=== PATIENT | female | born 1945 | race Caucasian/White ===

== ENCOUNTER → 2016-12-25 | Outpatient (CLI) | payer MEDICARE, OTHER ==
[~2016-12-25] MED LIST: ALLO300T PO; ASPI-515 PO; CELE100C PO; DILT360C22 PO; FLUT1DIS3 INH; LISI40TA PO; LORA0.5T PO; METF500T4 PO; MONT10TA9 PO; OMEP-110 PO; SERT50TA5 PO; SIMV10TA3 PO; TRIA1CAP3 PO
[2016-12-25 15:01] LABS: BLOOD UREA NITROGEN 20 mg/dL (7-18)
== END | disposition home or self-care (01) ==
LOC: LAB 14:38
PROVIDERS: ATTEND Physician Assistant
DX: Z13.220 Encounter for screening for lipoid disorders (principal); Z12.4 Encounter for screening for malignant neoplasm of cervix; Z12.39 Encounter for other screening for malignant neoplasm of breast; I08.0 Rheumatic disorders of both mitral and aortic valves; K21.9 Gastro-esophageal reflux disease without esophagitis; E78.5 Hyperlipidemia, unspecified; I10 Essential (primary) hypertension; R73.01 Impaired fasting glucose; F32.89 Other specified depressive episodes; F41.9 Anxiety disorder, unspecified; J44.9 Chronic obstructive pulmonary disease, unspecified; R60.9 Edema, unspecified; M25.511 Pain in right shoulder; R71.8 Other abnormality of red blood cells; R79.9 Abnormal finding of blood chemistry, unspecified; J15.8 Pneumonia due to other specified bacteria; E83.51 Hypocalcemia; B37.81 Candidal esophagitis
CPT/HCPCS: 36415; 80048

== ENCOUNTER → 2017-04-02 | Outpatient (CLI) | payer MEDICARE, OTHER ==
[2017-04-02 08:37] LABS: ASPARTATE AMINO TRANSFERASE 19 U/L (15-37); BLOOD UREA NITROGEN 12 mg/dL (7-18)
== END | disposition home or self-care (01) ==
LOC: LAB 08:12
PROVIDERS: ATTEND Physician Assistant
DX: Z13.220 Encounter for screening for lipoid disorders (principal); Z12.11 Encounter for screening for malignant neoplasm of colon; Z12.39 Encounter for other screening for malignant neoplasm of breast; Z12.4 Encounter for screening for malignant neoplasm of cervix; E78.5 Hyperlipidemia, unspecified; I10 Essential (primary) hypertension; J44.9 Chronic obstructive pulmonary disease, unspecified; I35.9 Nonrheumatic aortic valve disorder, unspecified; I34.9 Nonrheumatic mitral valve disorder, unspecified; K21.9 Gastro-esophageal reflux disease without esophagitis; B37.81 Candidal esophagitis; F32.89 Other specified depressive episodes; F41.9 Anxiety disorder, unspecified; R73.01 Impaired fasting glucose; E83.51 Hypocalcemia; R60.9 Edema, unspecified; M25.511 Pain in right shoulder; M25.561 Pain in right knee; M54.5 Low back pain; R71.8 Other abnormality of red blood cells; R89.9 Unspecified abnormal finding in specimens from other organs, systems and tissues; H35.30 Unspecified macular degeneration
CPT/HCPCS: 36415; 80053; 80061

== ENCOUNTER 2017-07-18 10:44 | Emergency (ER) | payer MEDICARE, OTHER ==
[~2017-07-18] VITALS: Ht 172.7 cm; Wt 79.6 kg
[2017-07-18 10:47] VITALS: BP 125/75
== END 2017-07-18 12:36 | disposition home or self-care (01) ==
LOC: ED 11:06
DX: S20.212A Contusion of left front wall of thorax, initial encounter (principal); S20.211A Contusion of right front wall of thorax, initial encounter; R51 Headache; E11.9 Type 2 diabetes mellitus without complications; I10 Essential (primary) hypertension; V89.2XXA Person injured in unspecified motor-vehicle accident, traffic, initial encounter; Y93.89 Activity, other specified; Y92.89 Other specified places as the place of occurrence of the external cause; Y99.9 Unspecified external cause status
CPT/HCPCS: 71020; 93005; 99284

== ENCOUNTER → 2017-08-26 | Outpatient (CLI) | payer MEDICARE, OTHER | END | disposition home or self-care (01) | LOC: CFH 10:04 | PROVIDERS: ATTEND Physician Assistant | DX: Z13.820 Encounter for screening for osteoporosis (principal); M85.80 Other specified disorders of bone density and structure, unspecified site; I10 Essential (primary) hypertension; K21.9 Gastro-esophageal reflux disease without esophagitis; E78.5 Hyperlipidemia, unspecified; Z78.0 Asymptomatic menopausal state | CPT/HCPCS: 77080 ==

== ENCOUNTER → 2017-10-08 | Outpatient (CLI) | payer MEDICARE, OTHER ==
[2017-10-08 08:37] LABS: BASOPHILS # (AUTO) 0.06 x10^3/uL (0-0.1); BASOPHILS % (AUTO) 1 % (0-1); EOSINOPHILS # (AUTO) 0.16 x10^3/uL (0-0.4); EOSINOPHILS % (AUTO) 3 % (1-7); LYMPHOCYTES # (AUTO) 2.19 x10^3/uL (1-3.4); LYMPHOCYTES % (AUTO) 34 % (22-44); MD NO; MEAN CORPUSCULAR HEMOGLOBIN 33.6 pg (27.0-34.8); MEAN CORPUSCULAR VOLUME 98.9 fL (80-100); MEAN PLATELET VOLUME 7.9 fL (7.4-10.4); MONOCYTES # (AUTO) 0.68 x10^3/uL (0.2-0.8); MONOCYTES % (AUTO) 11 % (2-9); NEUTROPHILS # (AUTO) 3.43 x10^3/uL (1.8-6.8); NEUTROPHILS % (AUTO) 53 % (42-75); PLATELET COUNT 247 x10^3/uL (130-400); RED CELL DISTRIBUTION WIDTH 14.1 % (9.6-15.2)
[2017-10-08 08:50] LABS: ALBUMIN 3.9 g/dL (3.4-5.0); ANION GAP 7 mmol/L (5-15); CALCIUM 9.2 mg/dL (8.5-10.1); CHLORIDE 107 mmol/L (98-107); CHOLESTEROL, TOTAL 163 mg/dL (140-239); TRIGLYCERIDES 86 mg/dL (50-200); VLDL CHOLESTEROL 17 mg/dL (0-25)
[2017-10-08 09:16] LABS: % IRON SATURATION 17 % (20-55); ALANINE AMINOTRANSFERASE 25 U/L (12-78); ALKALINE PHOSPHATASE 84 U/L (45-117); BILIRUBIN,TOTAL 0.5 mg/dL (0.2-1.0); CHOL/HDL RATIO 2.7; CREATININE 0.69 mg/dL (0.55-1.02); FOLATE LEVEL 15.4 ng/mL (3.1-17.5); HDL CHOL % 37 % (28-40); HDL CHOLESTEROL (DIRECT) 60 mg/dL (40-60); IRON LEVEL 58 mcg/dL (50-170); LDL CHOLESTEROL,CALCULATED 86 mg/dL (54-169); LDL/HDL RATIO 1.4 (0.5-3.0); TOTAL IRON BINDING CAPACITY 333 mcg/dL (250-450); TOTAL PROTEIN 7.4 g/dL (6.4-8.2); TRANSFERRIN 285 mg/dL (200-360)
== END | disposition home or self-care (01) ==
LOC: LAB 08:25
PROVIDERS: ATTEND Physician Assistant
DX: Z13.220 Encounter for screening for lipoid disorders (principal); Z12.11 Encounter for screening for malignant neoplasm of colon; Z12.31 Encounter for screening mammogram for malignant neoplasm of breast; Z12.4 Encounter for screening for malignant neoplasm of cervix; K21.9 Gastro-esophageal reflux disease without esophagitis; E78.5 Hyperlipidemia, unspecified; I10 Essential (primary) hypertension; R73.01 Impaired fasting glucose; F32.89 Other specified depressive episodes; F41.9 Anxiety disorder, unspecified; J44.9 Chronic obstructive pulmonary disease, unspecified; R60.9 Edema, unspecified; M25.511 Pain in right shoulder; I35.9 Nonrheumatic aortic valve disorder, unspecified; I34.9 Nonrheumatic mitral valve disorder, unspecified; R71.8 Other abnormality of red blood cells; M25.561 Pain in right knee; M54.5 Low back pain; R79.9 Abnormal finding of blood chemistry, unspecified; E83.51 Hypocalcemia; B37.81 Candidal esophagitis; H35.30 Unspecified macular degeneration; Z78.0 Asymptomatic menopausal state; R53.83 Other fatigue
CPT/HCPCS: 36415; 80053; 80061; 82607; 82728; 82746; 83540; 83550; 84443; 84466; 85025

== ENCOUNTER → 2018-01-29 | Outpatient (CLI) | payer MEDICARE, OTHER ==
[2018-01-29 08:04] LABS: BASOPHILS # (AUTO) 0.07 x10^3/uL (0-0.1); BASOPHILS % (AUTO) 1 % (0-1); EOSINOPHILS # (AUTO) 0.27 x10^3/uL (0-0.4); EOSINOPHILS % (AUTO) 4 % (1-7); LYMPHOCYTES # (AUTO) 1.72 x10^3/uL (1-3.4); LYMPHOCYTES % (AUTO) 27 % (22-44); MD NO; MEAN CORPUSCULAR HEMOGLOBIN 33.2 pg (27.0-34.8); MEAN CORPUSCULAR HGB CONC 33.6 g/dL (32.4-35.8); MEAN CORPUSCULAR VOLUME 98.7 fL (80-100); MEAN PLATELET VOLUME 7.9 fL (7.4-10.4); MONOCYTES # (AUTO) 0.72 x10^3/uL (0.2-0.8); MONOCYTES % (AUTO) 12 % (2-9); NEUTROPHILS % (AUTO) 56 % (42-75); PLATELET COUNT 221 x10^3/uL (130-400); RED BLOOD COUNT 4.48 x10^6/uL (3.82-5.3); RED CELL DISTRIBUTION WIDTH 14.9 % (9.6-15.2)
[2018-01-29 08:22] LABS: ALBUMIN 3.6 g/dL (3.4-5.0); BILIRUBIN, DIRECT 0.2 mg/dL (0.1-0.2); BILIRUBIN,INDIRECT 0.4 mg/dL (0.0-2.0); BILIRUBIN,TOTAL 0.6 mg/dL (0.2-1.0); CHOL/HDL RATIO 1.9; LDL/HDL RATIO 0.7 (0.5-3.0); TOTAL PROTEIN 6.7 g/dL (6.4-8.2)
== END | disposition home or self-care (01) ==
LOC: LAB 07:39
PROVIDERS: ATTEND Physician Assistant
DX: Z13.220 Encounter for screening for lipoid disorders (principal); Z12.11 Encounter for screening for malignant neoplasm of colon; Z12.39 Encounter for other screening for malignant neoplasm of breast; K21.9 Gastro-esophageal reflux disease without esophagitis; E78.5 Hyperlipidemia, unspecified; I10 Essential (primary) hypertension; R73.01 Impaired fasting glucose; F32.89 Other specified depressive episodes; J44.9 Chronic obstructive pulmonary disease, unspecified; R60.9 Edema, unspecified; M25.511 Pain in right shoulder; M25.561 Pain in right knee; R71.8 Other abnormality of red blood cells; I35.9 Nonrheumatic aortic valve disorder, unspecified; I34.9 Nonrheumatic mitral valve disorder, unspecified; R53.83 Other fatigue; R79.9 Abnormal finding of blood chemistry, unspecified; H35.30 Unspecified macular degeneration; E61.1 Iron deficiency; Z78.0 Asymptomatic menopausal state
CPT/HCPCS: 36415; 80061; 80076; 82043; 82728; 83540; 83550; 84466; 85025

== ENCOUNTER → 2018-02-04 | Outpatient (CLI) | payer MEDICARE, OTHER ==
[~2018-02-04] MED LIST changes: -METF500T4 PO; +METF500T5 PO
[2018-02-04 11:42] LABS: ANION GAP 7 mmol/L (5-15); C-REACTIVE PROTEIN, QUANT 0.09 mg/dL (0.02-0.49); CALCIUM 8.8 mg/dL (8.5-10.1); CHLORIDE 105 mmol/L (98-107); CREATININE 0.71 mg/dL (0.55-1.02)
[2018-02-04 12:12] LABS: FOLATE LEVEL > 20.0 ng/mL (3.1-17.5)
== END | disposition home or self-care (01) ==
LOC: LAB 11:11
PROVIDERS: ATTEND Physician Assistant
DX: I10 Essential (primary) hypertension (principal); K21.9 Gastro-esophageal reflux disease without esophagitis; E78.5 Hyperlipidemia, unspecified; E61.1 Iron deficiency; R53.83 Other fatigue; R71.8 Other abnormality of red blood cells
CPT/HCPCS: 36415; 80048; 82232; 82607; 82746; 84550; 85651; 86140; 86480

== ENCOUNTER → 2018-02-16 | Outpatient (CLI) | payer MEDICARE, OTHER | END | disposition home or self-care (01) | LOC: CFH 10:27 | PROVIDERS: ATTEND Physician Assistant | DX: R05 Cough (principal); R79.9 Abnormal finding of blood chemistry, unspecified | CPT/HCPCS: 71046 ==

== ENCOUNTER → 2018-03-23 | Outpatient (CLI) | payer MEDICARE, OTHER ==
[~2018-03-23] MED LIST changes: +GABA600T2 PO
== END | disposition home or self-care (01) ==
LOC: CFH 12:59
PROVIDERS: ATTEND Physician Assistant
DX: I10 Essential (primary) hypertension (principal); E78.5 Hyperlipidemia, unspecified; K21.9 Gastro-esophageal reflux disease without esophagitis; J44.9 Chronic obstructive pulmonary disease, unspecified; Z78.0 Asymptomatic menopausal state; M79.604 Pain in right leg; M79.605 Pain in left leg; R60.9 Edema, unspecified
CPT/HCPCS: 93970

== ENCOUNTER → 2018-04-17 | Outpatient (CLI) | payer MEDICARE, OTHER ==
[~2018-04-17] MED LIST changes: +REGADENOSON 0.4 MG/5 ML SYRINGE ONE
== END | disposition home or self-care (01) ==
LOC: CFH 08:35
PROVIDERS: ATTEND Internal Medicine
DX: I08.3 Combined rheumatic disorders of mitral, aortic and tricuspid valves (principal); I10 Essential (primary) hypertension; E78.5 Hyperlipidemia, unspecified; K21.9 Gastro-esophageal reflux disease without esophagitis; F41.9 Anxiety disorder, unspecified; J44.9 Chronic obstructive pulmonary disease, unspecified; Z87.891 Personal history of nicotine dependence; Z88.2 Allergy status to sulfonamides
CPT/HCPCS: 71046; 78452; 93017; 93306; A9502; J2785

== ENCOUNTER → 2018-06-01 | Outpatient (CLI) | payer MEDICARE, OTHER ==
[~2018-06-01] MED LIST changes: +METF500T17 PO; -METF500T5 PO; -REGADENOSON 0.4 MG/5 ML SYRINGE ONE
[2018-06-01 09:19] LABS: BASOPHILS # (AUTO) 0.07 x10^3/uL (0-0.1); BASOPHILS % (AUTO) 1 % (0-1); EOSINOPHILS # (AUTO) 0.16 x10^3/uL (0-0.4); EOSINOPHILS % (AUTO) 3 % (1-7); LYMPHOCYTES # (AUTO) 1.76 x10^3/uL (1-3.4); LYMPHOCYTES % (AUTO) 30 % (22-44); MD NO; MEAN CORPUSCULAR HEMOGLOBIN 34.6 pg (27.0-34.8); MEAN CORPUSCULAR HGB CONC 34.3 g/dL (32.4-35.8); MEAN CORPUSCULAR VOLUME 100.9 fL (80-100); MEAN PLATELET VOLUME 7.7 fL (7.4-10.4); MONOCYTES # (AUTO) 0.65 x10^3/uL (0.2-0.8); MONOCYTES % (AUTO) 11 % (2-9); NEUTROPHILS # (AUTO) 3.19 x10^3/uL (1.8-6.8); NEUTROPHILS % (AUTO) 55 % (42-75); PLATELET COUNT 213 x10^3/uL (130-400); RED BLOOD COUNT 4.56 x10^6/uL (3.82-5.3); RED CELL DISTRIBUTION WIDTH 15.1 % (9.6-15.2)
[2018-06-01 09:29] LABS: ALBUMIN 3.7 g/dL (3.4-5.0); ANION GAP 4 mmol/L (5-15); CALCIUM 8.9 mg/dL (8.5-10.1); CHLORIDE 107 mmol/L (98-107)
[2018-06-01 09:33] LABS: ALANINE AMINOTRANSFERASE 26 U/L (12-78); ALKALINE PHOSPHATASE 85 U/L (45-117); BILIRUBIN,TOTAL 0.6 mg/dL (0.2-1.0); TOTAL PROTEIN 7.1 g/dL (6.4-8.2)
== END | disposition home or self-care (01) ==
LOC: LAB 08:51
PROVIDERS: ATTEND Physician Assistant
DX: Z13.220 Encounter for screening for lipoid disorders (principal); Z12.11 Encounter for screening for malignant neoplasm of colon; Z12.39 Encounter for other screening for malignant neoplasm of breast; Z12.4 Encounter for screening for malignant neoplasm of cervix; I10 Essential (primary) hypertension; E78.5 Hyperlipidemia, unspecified; K21.9 Gastro-esophageal reflux disease without esophagitis; F41.9 Anxiety disorder, unspecified; J44.9 Chronic obstructive pulmonary disease, unspecified; Z78.0 Asymptomatic menopausal state
CPT/HCPCS: 36415; 80053; 83735; 85025

== ENCOUNTER → 2018-06-16 | Outpatient (CLI) | payer MEDICARE, OTHER ==
[2018-06-16 12:38] LABS: BASOPHILS # (AUTO) 0.08 x10^3/uL (0-0.1); BASOPHILS % (AUTO) 1 % (0-1); EOSINOPHILS # (AUTO) 0.11 x10^3/uL (0-0.4); EOSINOPHILS % (AUTO) 2 % (1-7); LYMPHOCYTES # (AUTO) 1.92 x10^3/uL (1-3.4); LYMPHOCYTES % (AUTO) 28 % (22-44); MD NO; MEAN CORPUSCULAR HEMOGLOBIN 35.4 pg (27.0-34.8); MEAN CORPUSCULAR HGB CONC 34.8 g/dL (32.4-35.8); MEAN CORPUSCULAR VOLUME 101.7 fL (80-100); MEAN PLATELET VOLUME 8.9 fL (7.4-10.4); MONOCYTES # (AUTO) 0.83 x10^3/uL (0.2-0.8); MONOCYTES % (AUTO) 12 % (2-9); NEUTROPHILS # (AUTO) 3.83 x10^3/uL (1.8-6.8); NEUTROPHILS % (AUTO) 57 % (42-75); PLATELET COUNT 193 x10^3/uL (130-400); RED BLOOD COUNT 4.43 x10^6/uL (3.82-5.3); RED CELL DISTRIBUTION WIDTH 14.6 % (9.6-15.2)
[2018-06-16 12:50] LABS: ANION GAP 7 mmol/L (5-15); CALCIUM 8.9 mg/dL (8.5-10.1); CHLORIDE 107 mmol/L (98-107)
== END | disposition home or self-care (01) ==
LOC: CFH 11:24
PROVIDERS: ATTEND Physician Assistant
DX: Z12.11 Encounter for screening for malignant neoplasm of colon (principal); Z13.220 Encounter for screening for lipoid disorders; Z12.39 Encounter for other screening for malignant neoplasm of breast; E78.5 Hyperlipidemia, unspecified; I10 Essential (primary) hypertension; R73.01 Impaired fasting glucose; K21.9 Gastro-esophageal reflux disease without esophagitis; F41.9 Anxiety disorder, unspecified; J44.9 Chronic obstructive pulmonary disease, unspecified; R60.9 Edema, unspecified; M25.511 Pain in right shoulder; I35.0 Nonrheumatic aortic (valve) stenosis; M25.561 Pain in right knee; M54.5 Low back pain; R79.9 Abnormal finding of blood chemistry, unspecified; H35.30 Unspecified macular degeneration; R53.83 Other fatigue; R76.12 Nonspecific reaction to cell mediated immunity measurement of gamma interferon antigen response without active tuberculosis; R20.2 Paresthesia of skin; R07.9 Chest pain, unspecified; E83.41 Hypermagnesemia; Z78.0 Asymptomatic menopausal state
CPT/HCPCS: 36415; 80048; 83735; 85025

== ENCOUNTER → 2018-10-02 | Outpatient (CLI) | payer MEDICARE, OTHER ==
[~2018-10-02] MED LIST changes: -GABA600T2 PO; +GABA600T7 PO; +SERT50TA28 PO; -SERT50TA5 PO
== END | disposition home or self-care (01) ==
LOC: CFH 14:00
PROVIDERS: ATTEND Physician Assistant
DX: M19.012 Primary osteoarthritis, left shoulder (principal); E78.5 Hyperlipidemia, unspecified; I10 Essential (primary) hypertension; K21.9 Gastro-esophageal reflux disease without esophagitis; F32.89 Other specified depressive episodes; F41.9 Anxiety disorder, unspecified; J44.9 Chronic obstructive pulmonary disease, unspecified

== ENCOUNTER → 2018-10-06 | Outpatient (CLI) | payer MEDICARE, OTHER ==
[2018-10-06 15:18] LABS: FREE T4 (FREE THYROXINE) 0.9 ng/dL (0.76-1.46); THYROID STIMULATING HORMONE 2.24 mIU/L (0.358-3.740)
== END | disposition home or self-care (01) ==
LOC: LAB 14:39
PROVIDERS: ATTEND Physician Assistant
DX: Z12.11 Encounter for screening for malignant neoplasm of colon (principal); Z13.220 Encounter for screening for lipoid disorders; Z12.39 Encounter for other screening for malignant neoplasm of breast; Z12.4 Encounter for screening for malignant neoplasm of cervix; I10 Essential (primary) hypertension; I35.8 Other nonrheumatic aortic valve disorders; I34.0 Nonrheumatic mitral (valve) insufficiency; E78.5 Hyperlipidemia, unspecified; E61.1 Iron deficiency; H35.30 Unspecified macular degeneration; J44.9 Chronic obstructive pulmonary disease, unspecified; K21.9 Gastro-esophageal reflux disease without esophagitis; L65.9 Nonscarring hair loss, unspecified; M25.511 Pain in right shoulder; M25.561 Pain in right knee; M25.512 Pain in left shoulder; M54.5 Low back pain; R60.9 Edema, unspecified; R73.01 Impaired fasting glucose; R71.8 Other abnormality of red blood cells; R53.83 Other fatigue; R76.12 Nonspecific reaction to cell mediated immunity measurement of gamma interferon antigen response without active tuberculosis; R20.2 Paresthesia of skin; R07.9 Chest pain, unspecified; R79.9 Abnormal finding of blood chemistry, unspecified; F32.89 Other specified depressive episodes; F41.9 Anxiety disorder, unspecified; Z78.0 Asymptomatic menopausal state
CPT/HCPCS: 36415; 84439; 84443; 84481

== ENCOUNTER → 2018-10-28 | Outpatient (CLI) | payer MEDICARE, OTHER | END | disposition home or self-care (01) | LOC: CFH 10:20 | PROVIDERS: ATTEND Physician Assistant | DX: M51.34 Other intervertebral disc degeneration, thoracic region (principal); M48.04 Spinal stenosis, thoracic region; M12.88 Other specific arthropathies, not elsewhere classified, other specified site; E78.5 Hyperlipidemia, unspecified; K21.9 Gastro-esophageal reflux disease without esophagitis; J44.9 Chronic obstructive pulmonary disease, unspecified; W19.XXXA Unspecified fall, initial encounter; Y93.89 Activity, other specified; Y92.89 Other specified places as the place of occurrence of the external cause; Y99.8 Other external cause status | CPT/HCPCS: 72050; 72072 ==

== ENCOUNTER → 2018-12-10 | Outpatient (CLI) | payer MEDICARE, OTHER ==
[2018-12-10 09:09] LABS: BASOPHILS # (AUTO) 0.09 x10^3/uL (0-0.1); BASOPHILS % (AUTO) 2 % (0-1); EOSINOPHILS # (AUTO) 0.24 x10^3/uL (0-0.4); EOSINOPHILS % (AUTO) 4 % (1-7); LYMPHOCYTES # (AUTO) 1.64 x10^3/uL (1-3.4); LYMPHOCYTES % (AUTO) 29 % (22-44); MD NO; MEAN PLATELET VOLUME 7.7 fL (7.4-10.4); MONOCYTES # (AUTO) 0.64 x10^3/uL (0.2-0.8); MONOCYTES % (AUTO) 11 % (2-9); NEUTROPHILS % (AUTO) 54 % (42-75); PLATELET COUNT 180 x10^3/uL (130-400); RED BLOOD COUNT 4.44 x10^6/uL (3.82-5.3); RED CELL DISTRIBUTION WIDTH 13.9 % (9.6-15.2)
[2018-12-10 09:16] LABS: ALBUMIN 3.6 g/dL (3.4-5.0); ANION GAP 5 mmol/L (5-15); CALCIUM 8.7 mg/dL (8.5-10.1); CHLORIDE 107 mmol/L (98-107); CHOLESTEROL, TOTAL 179 mg/dL (140-239); TRIGLYCERIDES 48 mg/dL (50-200); VLDL CHOLESTEROL 10 mg/dL (0-25)
[2018-12-10 09:42] LABS: % IRON SATURATION 28 % (20-55); ALANINE AMINOTRANSFERASE 33 U/L (12-78); ALKALINE PHOSPHATASE 97 U/L (45-117); BILIRUBIN,TOTAL 0.7 mg/dL (0.2-1.0); CHOL/HDL RATIO 1.6; CREATININE 0.66 mg/dL (0.55-1.02); FOLATE LEVEL 18.9 ng/mL (3.1-17.5); HDL CHOL % 61 % (28-40); HDL CHOLESTEROL (DIRECT) 109 mg/dL (40-60); IRON LEVEL 90 mcg/dL (50-170); LDL CHOLESTEROL,CALCULATED 60 mg/dL (54-169); LDL/HDL RATIO 0.6 (0.5-3.0); TOTAL IRON BINDING CAPACITY 320 mcg/dL (250-450); TOTAL PROTEIN 6.9 g/dL (6.4-8.2); TRANSFERRIN 244 mg/dL (200-360)
[2018-12-10 13:34] LABS: HEMOGLOBIN A1C 5.6 % (4.2-6.3)
== END | disposition home or self-care (01) ==
LOC: LAB 08:44
PROVIDERS: ATTEND Physician Assistant
DX: Z13.220 Encounter for screening for lipoid disorders (principal); Z12.11 Encounter for screening for malignant neoplasm of colon; Z12.39 Encounter for other screening for malignant neoplasm of breast; Z12.4 Encounter for screening for malignant neoplasm of cervix; E78.5 Hyperlipidemia, unspecified; I10 Essential (primary) hypertension; K21.9 Gastro-esophageal reflux disease without esophagitis; J44.9 Chronic obstructive pulmonary disease, unspecified; M25.511 Pain in right shoulder; I35.9 Nonrheumatic aortic valve disorder, unspecified; I34.9 Nonrheumatic mitral valve disorder, unspecified; F32.89 Other specified depressive episodes; F41.9 Anxiety disorder, unspecified; M25.561 Pain in right knee; M54.5 Low back pain; H35.30 Unspecified macular degeneration; E83.41 Hypermagnesemia; L60.0 Ingrowing nail; R73.01 Impaired fasting glucose; R60.9 Edema, unspecified; R71.8 Other abnormality of red blood cells; R79.9 Abnormal finding of blood chemistry, unspecified; R53.83 Other fatigue; R76.12 Nonspecific reaction to cell mediated immunity measurement of gamma interferon antigen response without active tuberculosis; R20.2 Paresthesia of skin; R07.9 Chest pain, unspecified; Z78.0 Asymptomatic menopausal state
CPT/HCPCS: 36415; 80053; 80061; 82607; 82728; 82746; 82784; 82785; 83036; 83540; 83550; 84443; 84466; 85025

== ENCOUNTER 2019-03-12 08:14 | Outpatient (CLI) | payer MEDICARE, OTHER ==
[2019-03-12 08:35] LABS: BASOPHILS # (AUTO) 0.06 x10^3/uL (0-0.1); BASOPHILS % (AUTO) 1 % (0-1); EOSINOPHILS % (AUTO) 3 % (1-7); LYMPHOCYTES # (AUTO) 1.91 x10^3/uL (1-3.4); LYMPHOCYTES % (AUTO) 28 % (22-44); MD NO; MEAN CORPUSCULAR HEMOGLOBIN 35.2 pg (27.0-34.8); MEAN CORPUSCULAR HGB CONC 33.5 g/dL (32.4-35.8); MEAN CORPUSCULAR VOLUME 105.1 fL (80-100); MEAN PLATELET VOLUME 7.4 fL (7.4-10.4); MONOCYTES # (AUTO) 0.65 x10^3/uL (0.2-0.8); MONOCYTES % (AUTO) 10 % (2-9); NEUTROPHILS # (AUTO) 3.98 x10^3/uL (1.8-6.8); NEUTROPHILS % (AUTO) 59 % (42-75); PLATELET COUNT 238 x10^3/uL (130-400); RED BLOOD COUNT 4.44 x10^6/uL (3.82-5.3); RED CELL DISTRIBUTION WIDTH 12.7 % (9.6-15.2)
[2019-03-12 08:39] LABS: ALANINE AMINOTRANSFERASE 25 U/L (12-78); ALBUMIN 3.4 g/dL (3.4-5.0); ANION GAP 7 mmol/L (5-15); CALCIUM 8.7 mg/dL (8.5-10.1); CHLORIDE 108 mmol/L (98-107)
[2019-03-12 09:06] LABS: ALKALINE PHOSPHATASE 92 U/L (45-117); BILIRUBIN,TOTAL 0.4 mg/dL (0.2-1.0); CHOL/HDL RATIO 2.1; CHOLESTEROL, TOTAL 163 mg/dL (140-239); CREATININE 0.73 mg/dL (0.55-1.02); HDL CHOL % 48 % (28-40); HDL CHOLESTEROL (DIRECT) 78 mg/dL (40-60); LDL CHOLESTEROL,CALCULATED 73 mg/dL (54-169); LDL/HDL RATIO 0.9 (0.5-3.0); TOTAL PROTEIN 6.8 g/dL (6.4-8.2); TRIGLYCERIDES 60 mg/dL (50-200); VLDL CHOLESTEROL 12 mg/dL (0-25)
== END 2019-03-12 23:59 | disposition home or self-care (01) ==
LOC: LAB 08:14
PROVIDERS: ATTEND Physician Assistant
DX: Z13.220 Encounter for screening for lipoid disorders (principal); Z12.11 Encounter for screening for malignant neoplasm of colon; Z12.39 Encounter for other screening for malignant neoplasm of breast; E78.5 Hyperlipidemia, unspecified; I10 Essential (primary) hypertension; R73.01 Impaired fasting glucose; K21.9 Gastro-esophageal reflux disease without esophagitis; F32.89 Other specified depressive episodes; F41.9 Anxiety disorder, unspecified; J44.9 Chronic obstructive pulmonary disease, unspecified; R60.9 Edema, unspecified; I34.9 Nonrheumatic mitral valve disorder, unspecified; R71.8 Other abnormality of red blood cells
CPT/HCPCS: 36415; 80053; 80061; 82607; 84443; 85025

== ENCOUNTER → 2019-09-27 | Outpatient (CLI) | payer MEDICARE, OTHER ==
[~2019-09-27] MED LIST changes: +MONT10TA11 PO; -MONT10TA9 PO; +SIMV10TA18 PO; -SIMV10TA3 PO
== END | disposition home or self-care (01) ==
LOC: CFH 16:29
PROVIDERS: ATTEND Internal Medicine
DX: J44.9 Chronic obstructive pulmonary disease, unspecified (principal); I35.8 Other nonrheumatic aortic valve disorders; I34.9 Nonrheumatic mitral valve disorder, unspecified; I10 Essential (primary) hypertension; E78.5 Hyperlipidemia, unspecified; K21.9 Gastro-esophageal reflux disease without esophagitis; F32.89 Other specified depressive episodes; F41.9 Anxiety disorder, unspecified; R60.9 Edema, unspecified; Z12.11 Encounter for screening for malignant neoplasm of colon; Z13.220 Encounter for screening for lipoid disorders; Z12.4 Encounter for screening for malignant neoplasm of cervix
CPT/HCPCS: 71046

== ENCOUNTER 2019-12-21 10:30 | Outpatient (CLI) | payer MEDICARE, OTHER | END 2019-12-21 23:59 | disposition home or self-care (01) | LOC: CFH 10:30 | PROVIDERS: ATTEND Internal Medicine | DX: Z12.11 Encounter for screening for malignant neoplasm of colon (principal); Z12.39 Encounter for other screening for malignant neoplasm of breast; Z12.4 Encounter for screening for malignant neoplasm of cervix; Z13.220 Encounter for screening for lipoid disorders; E78.5 Hyperlipidemia, unspecified; I10 Essential (primary) hypertension; R73.01 Impaired fasting glucose; K21.9 Gastro-esophageal reflux disease without esophagitis; J44.9 Chronic obstructive pulmonary disease, unspecified; R60.9 Edema, unspecified; M25.511 Pain in right shoulder; I35.8 Other nonrheumatic aortic valve disorders; I34.9 Nonrheumatic mitral valve disorder, unspecified; R71.8 Other abnormality of red blood cells; M25.561 Pain in right knee; M54.5 Low back pain; R79.9 Abnormal finding of blood chemistry, unspecified; H35.30 Unspecified macular degeneration; E61.1 Iron deficiency; R76.12 Nonspecific reaction to cell mediated immunity measurement of gamma interferon antigen response without active tuberculosis; R20.2 Paresthesia of skin; R07.9 Chest pain, unspecified; M25.512 Pain in left shoulder; L65.9 Nonscarring hair loss, unspecified; J40 Bronchitis, not specified as acute or chronic; F32.89 Other specified depressive episodes; F41.9 Anxiety disorder, unspecified | CPT/HCPCS: 87070; 87205 ==

== ENCOUNTER 2020-02-23 08:08 | Emergency (ER) | payer MEDICARE, OTHER ==
[~2020-02-23] VITALS: Ht 172.7 cm; Wt 79.4 kg
[2020-02-23 08:13] VITALS: BP 148/67
--- NOTE | 2020-02-23 09:28 | NUR ---
[employer] MAN: PT TO ROOM FROM LOBBY
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
--- NOTE | 2020-02-23 10:20 | NUR ---
REPORT FROM LAKEISHA OSPINA. PT SITTING UP IN [facility]. NAD NOTED. DC EDUATION PROVIDED. AWAITING ORTHO SHOE AND CONSULT WITH ORTHO
--- NOTE | 2020-02-23 11:16 | NUR ---
ORTHO SHOE IN PLACE. DC EDUCATION PROVIDED, PT DEMONSTRATES UNDERSTANDING. AMBULATORY TO DC WITH SO
== END 2020-02-23 11:19 | disposition home or self-care (01) ==
LOC: ED 08:26
DX: S92.411A Displaced fracture of proximal phalanx of right great toe, initial encounter for closed fracture (principal); G89.11 Acute pain due to trauma; I10 Essential (primary) hypertension; E11.9 Type 2 diabetes mellitus without complications; X58.XXXA Exposure to other specified factors, initial encounter; Y93.89 Activity, other specified; Y92.098 Other place in other non-institutional residence as the place of occurrence of the external cause; Y99.8 Other external cause status
CPT/HCPCS: 99283; 99285

== ENCOUNTER → 2020-03-02 | Outpatient (CLI) | payer MEDICARE, OTHER | END | disposition home or self-care (01) | LOC: CFH 10:02 | PROVIDERS: ATTEND Obstetrics & Gynecology Reproductive Endocrinology | DX: S92.514A Nondisplaced fracture of proximal phalanx of right lesser toe(s), initial encounter for closed fracture (principal); X58.XXXA Exposure to other specified factors, initial encounter; Y93.89 Activity, other specified; Y92.89 Other specified places as the place of occurrence of the external cause; Y99.8 Other external cause status ==

== ENCOUNTER → 2020-04-03 | Outpatient (CLI) | payer MEDICARE, OTHER ==
[2020-04-03 08:07] LABS: BASOPHILS # (AUTO) 0.06 x10^3/uL (0-0.1); BASOPHILS % (AUTO) 1 % (0-1); EOSINOPHILS # (AUTO) 0.23 x10^3/uL (0-0.4); EOSINOPHILS % (AUTO) 4 % (1-7); LYMPHOCYTES # (AUTO) 1.92 x10^3/uL (1-3.4); LYMPHOCYTES % (AUTO) 33 % (22-44); MD NO; MEAN CORPUSCULAR HEMOGLOBIN 34.5 pg (27.0-34.8); MEAN CORPUSCULAR HGB CONC 33.4 g/dL (32.4-35.8); MEAN CORPUSCULAR VOLUME 103.4 fL (80-100); MEAN PLATELET VOLUME 7.5 fL (7.4-10.4); MONOCYTES # (AUTO) 0.65 x10^3/uL (0.2-0.8); MONOCYTES % (AUTO) 11 % (2-9); NEUTROPHILS # (AUTO) 2.91 x10^3/uL (1.8-6.8); NEUTROPHILS % (AUTO) 51 % (42-75); PLATELET COUNT 188 x10^3/uL (130-400); RED BLOOD COUNT 4.64 x10^6/uL (3.82-5.3); RED CELL DISTRIBUTION WIDTH 13.2 % (9.6-15.2)
[2020-04-03 08:19] LABS: ALANINE AMINOTRANSFERASE 24 U/L (12-78); ALBUMIN 3.8 g/dL (3.4-5.0); ANION GAP 5 mmol/L (5-15); CALCIUM 8.6 mg/dL (8.5-10.1); CHLORIDE 107 mmol/L (98-107); CHOLESTEROL, TOTAL 167 mg/dL (140-239); CREATININE 0.76 mg/dL (0.55-1.02)
[2020-04-03 08:30] LABS: ALKALINE PHOSPHATASE 94 U/L (45-117); BILIRUBIN,TOTAL 0.5 mg/dL (0.2-1.0); CHOL/HDL RATIO 1.9; HDL CHOL % 53 % (28-40); HDL CHOLESTEROL (DIRECT) 89 mg/dL (40-60); LDL CHOLESTEROL,CALCULATED 60 mg/dL (54-169); LDL/HDL RATIO 0.7 (0.5-3.0); TOTAL PROTEIN 7.2 g/dL (6.4-8.2); TRIGLYCERIDES 88 mg/dL (50-200); VLDL CHOLESTEROL 18 mg/dL (0-25)
== END | disposition home or self-care (01) ==
LOC: LAB 07:53
PROVIDERS: ATTEND Internal Medicine
DX: Z13.220 Encounter for screening for lipoid disorders (principal); Z12.11 Encounter for screening for malignant neoplasm of colon; I10 Essential (primary) hypertension; K21.9 Gastro-esophageal reflux disease without esophagitis; E78.5 Hyperlipidemia, unspecified; J44.9 Chronic obstructive pulmonary disease, unspecified; M25.561 Pain in right knee; M54.5 Low back pain; J40 Bronchitis, not specified as acute or chronic; L65.9 Nonscarring hair loss, unspecified; R07.9 Chest pain, unspecified; R76.12 Nonspecific reaction to cell mediated immunity measurement of gamma interferon antigen response without active tuberculosis; E61.1 Iron deficiency; R20.2 Paresthesia of skin; F32.89 Other specified depressive episodes; F41.9 Anxiety disorder, unspecified; Z78.0 Asymptomatic menopausal state; R79.9 Abnormal finding of blood chemistry, unspecified; Z12.4 Encounter for screening for malignant neoplasm of cervix; I35.8 Other nonrheumatic aortic valve disorders; I34.9 Nonrheumatic mitral valve disorder, unspecified
CPT/HCPCS: 36415; 80053; 80061; 84443; 85025

== ENCOUNTER → 2020-08-21 | Outpatient (CLI) | payer MEDICARE, OTHER ==
[~2020-08-21] MED LIST changes: -MONT10TA11 PO; +MONT10TA96 PO
== END | disposition home or self-care (01) ==
LOC: CFH 12:21
PROVIDERS: ATTEND Nurse Practitioner Primary Care
DX: J43.2 Centrilobular emphysema (principal); J84.10 Pulmonary fibrosis, unspecified; I25.10 Atherosclerotic heart disease of native coronary artery without angina pectoris; M48.54XA Collapsed vertebra, not elsewhere classified, thoracic region, initial encounter for fracture
CPT/HCPCS: 71250

== ENCOUNTER → 2020-08-24 | Outpatient (CLI) | payer MEDICARE, OTHER | END | disposition home or self-care (01) | LOC: CFH 12:35 | PROVIDERS: ATTEND Internal Medicine | DX: Z12.31 Encounter for screening mammogram for malignant neoplasm of breast (principal) | CPT/HCPCS: 77063; 77067 ==

== ENCOUNTER 2020-10-11 07:50 | Outpatient (CLI) | payer MEDICARE, OTHER ==
[~2020-10-11 07:50] MED LIST changes: -ASPI-515 PO; +ASPI-963 PO; -LISI40TA PO; +LISI40TA9 PO; +MONT10TA17 PO; -MONT10TA96 PO
[2020-10-11 08:05] LABS: BASOPHILS % (AUTO) 1 % (0-1); EOSINOPHILS % (AUTO) 4 % (1-7); LYMPHOCYTES % (AUTO) 35 % (22-44); MEAN CORPUSCULAR HEMOGLOBIN 35.9 pg (27.0-34.8); MEAN CORPUSCULAR HGB CONC 34.1 g/dL (32.4-35.8); MONOCYTES % (AUTO) 11 % (2-9); NEUTROPHILS % (AUTO) 49 % (42-75); PLATELET COUNT 176 x10^3/uL (130-400); RED BLOOD COUNT 4.55 x10^6/uL (3.82-5.3); RED CELL DISTRIBUTION WIDTH 12.8 % (9.6-15.2)
[2020-10-11 08:06] LABS: MD NO
[2020-10-11 08:16] LABS: ALBUMIN 3.9 g/dL (3.4-5.0); ANION GAP 3 mmol/L (5-15); CHLORIDE 107 mmol/L (98-107); CHOLESTEROL, TOTAL 177 mg/dL (140-239)
[2020-10-11 08:43] LABS: % IRON SATURATION 27 % (20-55); ALANINE AMINOTRANSFERASE 24 U/L (12-78); ALKALINE PHOSPHATASE 92 U/L (45-117); BILIRUBIN,TOTAL 0.7 mg/dL (0.2-1.0); CHOL/HDL RATIO 1.5; CREATININE 0.78 mg/dL (0.55-1.02); FOLATE LEVEL 13.1 ng/mL (3.1-17.5); HDL CHOL % 66 % (28-40); HDL CHOLESTEROL (DIRECT) 116 mg/dL (40-60); IRON LEVEL 88 mcg/dL (50-170); LDL CHOLESTEROL,CALCULATED 48 mg/dL (54-169); LDL/HDL RATIO 0.4 (0.5-3.0); TOTAL IRON BINDING CAPACITY 328 mcg/dL (250-450); TOTAL PROTEIN 7.1 g/dL (6.4-8.2); TRANSFERRIN 282 mg/dL (200-360); TRIGLYCERIDES 64 mg/dL (50-200); VLDL CHOLESTEROL 13 mg/dL (0-25)
== END 2020-10-11 23:59 | disposition home or self-care (01) ==
LOC: LAB 07:50
PROVIDERS: ATTEND Internal Medicine
DX: Z13.220 Encounter for screening for lipoid disorders (principal); Z12.11 Encounter for screening for malignant neoplasm of colon; I10 Essential (primary) hypertension; E78.5 Hyperlipidemia, unspecified; R73.01 Impaired fasting glucose; K21.9 Gastro-esophageal reflux disease without esophagitis; F32.89 Other specified depressive episodes; F41.9 Anxiety disorder, unspecified; J44.9 Chronic obstructive pulmonary disease, unspecified; R60.9 Edema, unspecified; M25.511 Pain in right shoulder; I35.0 Nonrheumatic aortic (valve) stenosis; R71.8 Other abnormality of red blood cells; M25.561 Pain in right knee; M54.5 Low back pain; Z12.4 Encounter for screening for malignant neoplasm of cervix; R79.9 Abnormal finding of blood chemistry, unspecified; H35.30 Unspecified macular degeneration; Z78.0 Asymptomatic menopausal state; R53.83 Other fatigue; R76.12 Nonspecific reaction to cell mediated immunity measurement of gamma interferon antigen response without active tuberculosis; R20.2 Paresthesia of skin; R07.9 Chest pain, unspecified; E83.41 Hypermagnesemia; L60.0 Ingrowing nail; I35.8 Other nonrheumatic aortic valve disorders; I34.9 Nonrheumatic mitral valve disorder, unspecified; M25.512 Pain in left shoulder; L65.9 Nonscarring hair loss, unspecified; M54.9 Dorsalgia, unspecified; J40 Bronchitis, not specified as acute or chronic
CPT/HCPCS: 36415; 80053; 80061; 82607; 82728; 82746; 82784; 82785; 83036; 83540; 83550; 84443; 84466; 85025; 87070; 87205

== ENCOUNTER 2021-04-11 13:46 | Outpatient (CLI) | payer MEDICARE, OTHER | END 2021-04-11 23:59 | disposition home or self-care (01) | LOC: CVU 13:46 | PROVIDERS: ATTEND Internal Medicine | DX: I08.3 Combined rheumatic disorders of mitral, aortic and tricuspid valves (principal); R22.43 Localized swelling, mass and lump, lower limb, bilateral | CPT/HCPCS: 93306; 93356 ==

== ENCOUNTER 2021-04-19 10:02 | Outpatient (CLI) | payer MEDICARE, OTHER ==
[2021-04-19 10:38] LABS: ALBUMIN 3.9 g/dL (3.4-5.0); ANION GAP 6 mmol/L (5-15); CALCIUM 9.3 mg/dL (8.5-10.1); CHLORIDE 106 mmol/L (98-107)
[2021-04-19 10:42] LABS: ALANINE AMINOTRANSFERASE 31 U/L (12-78); ALKALINE PHOSPHATASE 88 U/L (45-117); BILIRUBIN,TOTAL 0.7 mg/dL (0.2-1.0); CHOL/HDL RATIO 1.9; CHOLESTEROL, TOTAL 176 mg/dL (140-239); CREATININE 0.69 mg/dL (0.55-1.02); HDL CHOL % 52 % (28-40); HDL CHOLESTEROL (DIRECT) 91 mg/dL (40-60); LDL CHOLESTEROL,CALCULATED 73 mg/dL (54-169); LDL/HDL RATIO 0.8 (0.5-3.0); TOTAL PROTEIN 7.5 g/dL (6.4-8.2); TRIGLYCERIDES 60 mg/dL (50-200); VLDL CHOLESTEROL 12 mg/dL (0-25)
== END 2021-04-19 23:59 | disposition home or self-care (01) ==
LOC: LAB 10:02
PROVIDERS: ATTEND Internal Medicine
DX: Z13.220 Encounter for screening for lipoid disorders (principal); Z00.00 Encounter for general adult medical examination without abnormal findings; Z12.4 Encounter for screening for malignant neoplasm of cervix; I10 Essential (primary) hypertension; R60.9 Edema, unspecified; F41.9 Anxiety disorder, unspecified; J44.9 Chronic obstructive pulmonary disease, unspecified; K21.9 Gastro-esophageal reflux disease without esophagitis; E78.5 Hyperlipidemia, unspecified; F32.89 Other specified depressive episodes; M25.511 Pain in right shoulder; I35.8 Other nonrheumatic aortic valve disorders; I34.9 Nonrheumatic mitral valve disorder, unspecified; R71.8 Other abnormality of red blood cells; M25.561 Pain in right knee; M54.5 Low back pain; R79.9 Abnormal finding of blood chemistry, unspecified; H35.30 Unspecified macular degeneration; E61.1 Iron deficiency; R76.12 Nonspecific reaction to cell mediated immunity measurement of gamma interferon antigen response without active tuberculosis; R20.2 Paresthesia of skin; R07.9 Chest pain, unspecified; M25.512 Pain in left shoulder; L65.9 Nonscarring hair loss, unspecified; M54.9 Dorsalgia, unspecified; J30.9 Allergic rhinitis, unspecified; Z78.0 Asymptomatic menopausal state
CPT/HCPCS: 36415; 80053; 80061